=== PATIENT | male | born 1955 | race Caucasian/White ===

== ENCOUNTER 2021-10-10 13:20 | Outpatient (CLI) | payer OTHER | END 2021-10-10 13:21 | disposition home or self-care (01) | LOC: CSHULT 13:20 | PROVIDERS: ATTEND Nurse Practitioner Family | DX: I99.8 Other disorder of circulatory system (principal); L97.929 Non-pressure chronic ulcer of unspecified part of left lower leg with unspecified severity; L97.919 Non-pressure chronic ulcer of unspecified part of right lower leg with unspecified severity | CPT/HCPCS: 93925 ==

== ENCOUNTER 2022-06-26 18:06 | Observation (INO) | payer OTHER ==
[2022-06-26 19:08] LABS: #Eosinphils 0.1 10x3/uL (0.0-0.5); #Monocytes 0.5 10x3/uL (0.0-1.1); #Neutrophils 6.8 10x3/uL (1.5-8.4); %Basophils 0.3 % (0.0-2.0); %Eosinophils 1.5 % (0.0-6.0); %Lymphocytes 13.7 % (18.0-47.0); %Monocytes 5.9 % (0.0-10.0); Hemoglobin 13.2 g/dL (13.5-17.5); Mean Corpuscular HGB CONC 32.3 g/dL (32.0-36.0); Mean Corpuscular Volume 86.7 fl (81.2-95.1); Mean Platelet Volume 10.2 fl (7.4-10.4); Platelet Count 133 10x3/uL (150-450); RBC Distribution Width 14.7 % (11.5-14.5); Red Blood Cell (RBC) Count 4.72 10x6/uL (4.32-5.72); White Blood Cell (WBC) Count 8.7 10x3/uL (3.5-10.5)
[2022-06-26 19:23] LABS: ALT (SGPT) 19 U/L (8-55); AST (SGOT) 18 U/L (5-34); Albumin 4.4 g/dL (3.4-4.8); Alkaline Phosphatase 52 U/L (40-110); Anion Gap 17 mmol/L (10-20); BUN (Urea Nitrogen) 17 mg/dL (8.4-25.7); Bilirubin, Total 0.4 mg/dL (0.2-1.2); Calc. Creatinine Clearance 0 mL/min (70-130); Calcium 9.3 mg/dL (7.8-10.44); Carbon Dioxide 23 mmol/L (23-31); Chloride 102 mmol/L (98-107); Estimated GFR 71; Globulin 3.1 g/dL (2.4-3.5); Glucose 215 mg/dL (80-115); Potassium 3.9 mmol/L (3.5-5.1); Protein, Total 7.5 g/dL (5.8-8.1); Sodium 138 mmol/L (136-145)
[2022-06-26] MEDS ORDERED: Calcium Carbonate 500 MG ChewTAB PO PRN (21:46)
[2022-06-26] MEDS ORDERED: Acetaminophen 325 MG TAB PO PRN (21:46)
[2022-06-26] MEDS ORDERED: Ondansetron ODT 4 MG TAB PO PRN (21:46)
[2022-06-26] MEDS ORDERED: Ondansetron PF 4 MG/2 ML Vial IVP PRN (21:46)
[2022-06-26 22:04] VITALS: BMI 39.5
[2022-06-26] MEDS ORDERED: Aspirin 81 mg Enteric Coated Tablet PO SCH (22:15)
[2022-06-26] MEDS ORDERED: Gabapentin 300 MG CAP PO SCH (22:15)
[2022-06-26] MEDS ORDERED: Tamsulosin HCl 0.4 MG CAP PO SCH (22:15)
[2022-06-26] MEDS ORDERED: Potassium Chloride 20 MEQ TAB PO SCH (22:30)
[2022-06-26] MEDS ORDERED: metFORMIN 500 MG TAB PO SCH (22:45)
[2022-06-26 23:08] LABS: CKMB 1.2 ng/mL (0-6.6)
[2022-06-26 23:56] LABS: SARS-CoV-2 NAA Rapid Test DETECTED (NotDetected)
[2022-06-27 02:13] LABS: CKMB 1.1 ng/mL (0-6.6)
[2022-06-27] MEDS ORDERED: Spironolactone 25 MG TAB PO SCH (08:00)
[2022-06-27] MEDS ORDERED: Furosemide 20 MG TAB PO SCH (09:00)
[2022-06-27] MEDS ORDERED: Gabapentin 300 MG CAP PO SCH (09:00)
[2022-06-27] MEDS ORDERED: Digoxin 0.25 MG TAB PO SCH ×2 (09:00)
[2022-06-27] MEDS ORDERED: metFORMIN 500 MG TAB PO SCH ×2 (09:00→21:00)
[2022-06-27] MEDS ORDERED: Venlafaxine 75 MG TAB PO SCH (09:00)
[2022-06-27] MEDS ORDERED: Naproxen 500 MG TAB PO SCH (09:00)
[2022-06-27] MEDS ORDERED: [UNRECOGNIZED DRUG - OTHER] PO SCH (09:00)
[2022-06-27] MEDS ORDERED: Enoxaparin Sodium 40 MG/0.4 ML SYRINGE SC SCH (09:00)
[2022-06-27 19:58] VITALS: BP 119/78; TEMP 98.5
[2022-06-27] MEDS ORDERED: Tamsulosin HCl 0.4 MG CAP PO SCH (21:00)
[2022-06-27] MEDS ORDERED: Aspirin 81 mg Enteric Coated Tablet PO SCH (21:00)
[2022-06-28] MEDS ORDERED: Digoxin 0.25 MG TAB PO SCH (09:00)
== END 2022-06-27 19:07 | disposition home or self-care (01) ==
LOC: CSHERS 18:06 → CSHTELE 21:46
PROVIDERS: ADMIT Family Medicine; ATTEND Internal Medicine
DX: I47.1 Supraventricular tachycardia (principal); R00.1 Bradycardia, unspecified; I48.0 Paroxysmal atrial fibrillation; I50.32 Chronic diastolic (congestive) heart failure; E11.9 Type 2 diabetes mellitus without complications; N40.1 Benign prostatic hyperplasia with lower urinary tract symptoms; R35.0 Frequency of micturition; D69.6 Thrombocytopenia, unspecified; F32.9 Major depressive disorder, single episode, unspecified; I44.0 Atrioventricular block, first degree; U07.1 COVID-19; E66.9 Obesity, unspecified; Z79.82 Long term (current) use of aspirin; Z79.84 Long term (current) use of oral hypoglycemic drugs; Z79.899 Other long term (current) drug therapy; Z90.49 Acquired absence of other specified parts of digestive tract; Z98.890 Other specified postprocedural states
CPT/HCPCS: 36415; 71045; 80053; 82553; 83735; 83880; 84443; 84484; 85025; 93005; 93010; 96372; G0378; J1650; U0002

== ENCOUNTER 2022-08-14 13:44 | Outpatient (CLI) | payer OTHER | END 2022-08-14 13:45 | disposition home or self-care (01) | LOC: CSHWCC 13:44 | PROVIDERS: ATTEND Nurse Practitioner Family | DX: T81.89XD Other complications of procedures, not elsewhere classified, subsequent encounter (principal) | CPT/HCPCS: 97605; 99203; G0463 ==

== ENCOUNTER 2022-08-21 10:35 | Outpatient (CLI) | payer OTHER | END 2022-08-21 10:36 | disposition home or self-care (01) | LOC: CSHWCC 10:35 | PROVIDERS: ATTEND Nurse Practitioner Family | DX: T81.89XD Other complications of procedures, not elsewhere classified, subsequent encounter (principal) | CPT/HCPCS: 99212; G0463 ==

== ENCOUNTER 2022-08-28 14:46 | Outpatient (CLI) | payer OTHER | END 2022-08-28 14:47 | disposition home or self-care (01) | LOC: CSHWCC 14:46 | PROVIDERS: ATTEND Nurse Practitioner Family | DX: T81.89XD Other complications of procedures, not elsewhere classified, subsequent encounter (principal) | CPT/HCPCS: 99212; G0463 ==

== ENCOUNTER 2022-10-09 15:14 | Outpatient (CLI) | payer OTHER | END 2022-10-09 15:15 | disposition home or self-care (01) | LOC: CSHWCC 15:14 | PROVIDERS: ATTEND Nurse Practitioner Family | DX: T81.89XD Other complications of procedures, not elsewhere classified, subsequent encounter (principal) | CPT/HCPCS: 99212; G0463 ==

== ENCOUNTER 2024-07-28 13:45 | Outpatient (CLI) | payer MEDICARE, OTHER | END 2024-07-28 13:46 | disposition home or self-care (01) | LOC: CSHCP 13:45 | PROVIDERS: ATTEND Internal Medicine Critical Care Medicine | DX: R06.09 Other forms of dyspnea (principal) | CPT/HCPCS: 94060; 94664; 94726; 94729; 94760 ==

== ENCOUNTER 2024-08-18 14:08 | Outpatient (CLI) | payer MEDICARE, OTHER | END 2024-08-18 14:09 | disposition home or self-care (01) | LOC: CSHCT 14:08 | PROVIDERS: ATTEND Internal Medicine Critical Care Medicine | DX: R06.09 Other forms of dyspnea (principal); J90 Pleural effusion, not elsewhere classified; R91.8 Other nonspecific abnormal finding of lung field; I51.7 Cardiomegaly; R91.1 Solitary pulmonary nodule | CPT/HCPCS: 36415; 71275; 82565 ==

== ENCOUNTER 2025-05-12 14:46 | Outpatient (CLI) | payer MEDICARE, OTHER | END 2025-05-12 14:47 | disposition home or self-care (01) | LOC: CSHWCC 14:46 | PROVIDERS: ATTEND Nurse Practitioner Family | DX: L89.893 Pressure ulcer of other site, stage 3 (principal) | CPT/HCPCS: 11042 ==

== ENCOUNTER 2025-05-28 12:50 | Outpatient (CLI) | payer MEDICARE, OTHER | END 2025-05-28 12:51 | disposition home or self-care (01) | LOC: CSHWCC 12:50 | PROVIDERS: ATTEND Nurse Practitioner Family | DX: L89.893 Pressure ulcer of other site, stage 3 (principal) | CPT/HCPCS: 11042; G0463; 99213 ==

== ENCOUNTER 2025-06-01 14:45 | Outpatient (CLI) | payer MEDICARE, OTHER | END 2025-06-01 14:46 | disposition home or self-care (01) | LOC: CSHWCC 14:45 | PROVIDERS: ATTEND Nurse Practitioner Family | DX: L89.893 Pressure ulcer of other site, stage 3 (principal) | CPT/HCPCS: 15275; Q4186 ==

== ENCOUNTER 2025-06-05 13:42 | Outpatient (CLI) | payer MEDICARE, OTHER | END 2025-06-05 13:43 | disposition home or self-care (01) | LOC: CSHWCC 13:42 | PROVIDERS: ATTEND Nurse Practitioner Family | DX: L89.893 Pressure ulcer of other site, stage 3 (principal) | CPT/HCPCS: 29445 ==

== ENCOUNTER 2025-06-09 10:48 | Outpatient (CLI) | payer MEDICARE, OTHER | END 2025-06-09 10:49 | disposition home or self-care (01) | LOC: CSHWCC 10:48 | PROVIDERS: ATTEND Nurse Practitioner Family | DX: L89.893 Pressure ulcer of other site, stage 3 (principal) | CPT/HCPCS: 15275; Q4186 ==

== ENCOUNTER 2025-06-12 13:29 | Outpatient (CLI) | payer MEDICARE, OTHER | END 2025-06-12 13:30 | disposition home or self-care (01) | LOC: CSHWCC 13:29 | PROVIDERS: ATTEND Nurse Practitioner Family | DX: L89.893 Pressure ulcer of other site, stage 3 (principal) | CPT/HCPCS: 15275; Q4186 ==

== ENCOUNTER 2025-06-15 13:34 | Outpatient (CLI) | payer MEDICARE, OTHER | END 2025-06-15 13:35 | disposition home or self-care (01) | LOC: CSHWCC 13:34 | PROVIDERS: ATTEND Nurse Practitioner Family | DX: L89.893 Pressure ulcer of other site, stage 3 (principal); M14.672 Charcot's joint, left ankle and foot ==

== ENCOUNTER 2025-06-18 09:26 | Outpatient (CLI) | payer MEDICARE, OTHER | END 2025-06-18 09:27 | disposition home or self-care (01) | LOC: CSHWCC 09:26 | PROVIDERS: ATTEND Nurse Practitioner Family | DX: L89.893 Pressure ulcer of other site, stage 3 (principal); M14.672 Charcot's joint, left ankle and foot | CPT/HCPCS: 29445 ==

== ENCOUNTER 2025-06-23 13:26 | Outpatient (CLI) | payer MEDICARE, OTHER | END 2025-06-23 13:27 | disposition home or self-care (01) | LOC: CSHWCC 13:26 | PROVIDERS: ATTEND Nurse Practitioner Family | DX: L89.893 Pressure ulcer of other site, stage 3 (principal); M14.672 Charcot's joint, left ankle and foot | CPT/HCPCS: 15275; Q4186 ==

== ENCOUNTER 2025-06-26 12:41 | Outpatient (CLI) | payer MEDICARE, OTHER | END 2025-06-26 12:42 | disposition home or self-care (01) | LOC: CSHWCC 12:41 | PROVIDERS: ATTEND Nurse Practitioner Family | DX: L89.893 Pressure ulcer of other site, stage 3 (principal); M14.672 Charcot's joint, left ankle and foot | CPT/HCPCS: 29445; G0463; 99213 ==

== ENCOUNTER 2025-06-30 08:42 | Outpatient (CLI) | payer MEDICARE, OTHER | END 2025-06-30 08:43 | disposition home or self-care (01) | LOC: CSHWCC 08:42 | PROVIDERS: ATTEND Nurse Practitioner Family | DX: L89.893 Pressure ulcer of other site, stage 3 (principal); S80.811D Abrasion, right lower leg, subsequent encounter; M14.672 Charcot's joint, left ankle and foot; D69.2 Other nonthrombocytopenic purpura | CPT/HCPCS: 99213; G0463 ==

== ENCOUNTER 2025-07-07 13:09 | Outpatient (CLI) | payer MEDICARE, OTHER | END 2025-07-07 13:10 | disposition home or self-care (01) | LOC: CSHWCC 13:09 | PROVIDERS: ATTEND Nurse Practitioner Family | DX: S80.811D Abrasion, right lower leg, subsequent encounter (principal); M14.672 Charcot's joint, left ankle and foot; D69.2 Other nonthrombocytopenic purpura | CPT/HCPCS: 99213; G0463 ==

== ENCOUNTER 2025-09-21 08:05 | Outpatient (CLI) | payer MEDICARE, OTHER | END 2025-09-21 08:06 | disposition home or self-care (01) | LOC: CSHWCC 08:05 | PROVIDERS: ATTEND Nurse Practitioner Family | DX: L89.893 Pressure ulcer of other site, stage 3 (principal); M14.672 Charcot's joint, left ankle and foot | CPT/HCPCS: 11042; 99213; G0463 ==

== ENCOUNTER 2025-09-30 09:18 | Outpatient (CLI) | payer MEDICARE, OTHER | END 2025-09-30 09:19 | disposition home or self-care (01) | LOC: CSHWCC 09:18 | PROVIDERS: ATTEND Nurse Practitioner Family | DX: L89.893 Pressure ulcer of other site, stage 3 (principal); M14.672 Charcot's joint, left ankle and foot | CPT/HCPCS: 97597 ==

== ENCOUNTER 2025-10-19 09:49 | Outpatient (CLI) | payer MEDICARE, OTHER | END 2025-10-19 09:50 | disposition home or self-care (01) | LOC: CSHWCC 09:49 | PROVIDERS: ATTEND Nurse Practitioner Family | DX: L89.893 Pressure ulcer of other site, stage 3 (principal); M14.672 Charcot's joint, left ankle and foot | CPT/HCPCS: 97597 ==